=== PATIENT | male | born 1960 | race Caucasian/White ===

== ENCOUNTER 2024-12-28 09:59 | Emergency (ER) | payer MEDICARE, OTHER, SELFPAY ==
[2024-12-28 10:05] VITALS: BP 148/73
[2024-12-28 10:21] VITALS: BMI 26.1
--- NOTE | 2024-12-28 10:27 | ED.GENMED ---
Addendum entered and electronically signed by Jeet Kenyon DO 12/28/24 13:29:
Update patient remained hemodynamically stable here feeling better no recurrence of his symptoms no chest pain or shortness of breath undetectable troponin CT noted
Original Note:
History of Present Illness
General
Chief Complaint: Dizziness
Source: patient and ambulance crew
Exam Limitations: none
Time Seen by Provider: 12/28/24 10:02
Nursing documentation reviewed up to this point in time: agreed with
History of Present Illness
History of Present Illness:
64-year-old male referred from local urgent care for dizziness and abnormal EKG onset a few nights ago symptoms are intermittent, no vomiting no chest pain, took 4 baby aspirin from EMS, has history of a heart murmur since he was in the [place], does
not see a manufacturing quality technician regularly no history of CAD, symptoms have been intermittent, feels like the room spins, has no symptoms now
Past History
Past History
ED Past Medical History: HTN and Other (Heart murmur)
ED Past Surgical History: Negative Appendectomy, Bowel resection or Cardiac
Social History
Tobacco: Non-smoker
Alcohol: None
Drug: None
Personal:
Living: with family
Employment: Employed
Family History
Family History: Other (Orphan does not know his family history)
Review of Systems
Review of Systems
Other source history: family and ambulance crew
All Other Systems: Not applicable
EENT: Reports no symptoms
Respiratory: Reports no symptoms; Denies cough or trouble breathing
Cardiac: Denies chest pain, diaphoresis, palpitations or syncope
ABD/GI: Reports no symptoms; Denies abdominal pain or vomiting
Musculoskeletal: Reports no symptoms
Skin: Reports no symptoms
Neurological: Reports dizzy; Denies headache or weakness
Phy Exam
Physical Exam
Physical Exam:
Physical Exam
General: no apparent distress, not acutely ill
Neck: No jaundice
Heart: s1/s2 regular rate and rhythm, no murmur. equal radial pulses.
Lungs: no acute respiratory distress. clear bilaterally
Abdomen: Not tender
Neuro: alert and oriented. no focal neurological deficits normal [id number]
Skin: no rash
Psychiatric: well kept. interactive and cooperative
Extremities: no edema. No calf pain
Course
Orders/Labs/Results
Orders:
Orders
12/28/24 10:02
IV Insert/Care/Rem.- Treatment PRN
12/28/24 10:03
Electrocardiogram (*1) Stat
Reason for Study: Other
Other Reason for Exam: chest pain
Cardiac Monitoring- Treatment ONCE
EKG- Treatment ONCE
CR Chest Portable - 1 View Urgent
Comment:
Reason For Exam: dizzy
Reason Study Needs to be Portable: Patient Unstable
12/28/24 10:13
Complete Blood Count/With Diff Urgent
Comprehensive Metabolic Panel Urgent
Magnesium Urgent
TSH Urgent
Troponin I Urgent
12/28/24 10:59
CT Head W/o Iv Contrast Urgent
Comment:
Reason For Exam: dizyz
Orthostatic VS- Treatment ONCE
Abnormal Lab Results
12/28/24
10:13
Glucose 136 H mg/dl
(70-99)
Albumin 5.2 H g/dl
(3.5-5.0)
12/28/24 10:13
Vital Signs
Initial and Last Documented VS:
Initial Vital Signs
Temp Pulse Resp BP Pulse Ox
97.6 F 88 16 148/73 98
12/28/24 10:05 12/28/24 10:05 12/28/24 10:05 12/28/24 10:05 12/28/24 10:05
Last Documented Vital Signs
Temp Pulse Resp BP Pulse Ox
97.6 F 93 16 148/73 99
12/28/24 10:05 12/28/24 10:15 12/28/24 10:15 12/28/24 10:05 12/28/24 10:15
MDM/Problems Addressed
Differential Diagnosis Includes:
Vertigo electrolyte abnormality orthostasis doubt ACS without chest pain or shortness of breath
MDM/Problems Addressed:
Dizziness
Chronic conditions affecting care: HTN
Acute Exacerbation and/or Progression of Chronic Illness: HTN
*Radiology
Radiology exam reviewed: radiology read reviewed
*Pulse Oximetry
Patient hypoxic: no
*EKG
Interpreted by ED Provider?: Yes
Interpretation: abnormal
Comparison EKG: no comparison EKG present
Heart Rate: 78
Rate: normal
Rhythm: sinus
Ischemia: non-specific ST changes
*Zipper Setter Chainstitch Interpretation
Heart Rate: 78
Rhythm: sinus
*Critical Care Note
Total Time (30-74mins, 75-104mins- exclusive of procedures): Not Applicable
ED Attending Note
-
Portions of this chart may have been created with voice recognition software.� Occasional wrong word or��sound alike� substitutions may have occurred due to the inherent limitations of voice recognition software.
Discharge Plan
Departure
Referrals:
Tamiko Najera MD [Family Provider] -
Interventions
Interventions:
*Risk Screen - Suicide Last Done: 12/28/24 10:05
*Neglect/Abuse Screening Last Done: 12/28/24 10:05
ED- Neurological Assessment Last Done: 12/28/24 10:21
ED Swallowing Screen Last Done: 12/28/24 10:22
Discharge Date and Time
Print Language: AZERI
[2024-12-28 10:35] LABS: ALT (SGPT) 19 U/L (0-50); AST (SGOT) 22 U/L (17-59); Albumin 5.2 g/dl (3.5-5.0); Alkaline Phosphatase 82 U/L (38-126); Blood Urea Nitrogen 20 mg/dl (9-20); Calcium 9.9 mg/dl (8.4-10.2); Carbon Dioxide 22 mmol/L (22-30); Chloride 101 mmol/L (98-107); Estimated Creatinine Clearance 114 ml/min; Glucose 136 mg/dl (70-99); Magnesium 1.9 mg/dl (1.6-2.3); Potassium 3.8 mmol/L (3.5-5.1); Sodium 137 mmol/L (135-145); Total Bilirubin 0.8 mg/dl (0.2-1.3); Total Protein 8.2 g/dl (6.3-8.2); eGFR > 60.00
[2024-12-28 10:44] LABS: Troponin I < 0.012 ng/ml
[2024-12-28 11:00] VITALS: BP 145/64
[2024-12-28 11:05] LABS: TSH 1.63 uIU/ml (0.47-4.68)
[2024-12-28 11:06] VITALS: BP 131/60
[2024-12-28 11:08] VITALS: BP 146/96
[2024-12-28 11:09] VITALS: BP 160/77
[2024-12-28 11:11] VITALS: BP 131/60; BP 146/96; BP 160/77; PULSE 64; PULSE 76; PULSE 81
--- NOTE | 2024-12-28 13:26 | ED.GENMED ---
History of Present Illness
General
Chief Complaint: Dizziness
Time Seen by Provider: 12/28/24 10:02
Past History
Past History
ED Past Medical History: HTN and Other (Heart murmur)
ED Past Surgical History: Negative Appendectomy, Bowel resection or Cardiac
Social History
Tobacco: Non-smoker
Alcohol: None
Drug: None
Personal:
Living: with family
Employment: Employed
Family History
Family History: Other (Orphan does not know his family history)
Course
Orders/Labs/Results
Orders:
Orders
12/28/24 10:02
IV Insert/Care/Rem.- Treatment PRN
12/28/24 10:03
Electrocardiogram (*1) Stat
Reason for Study: Other
Other Reason for Exam: chest pain
Cardiac Monitoring- Treatment ONCE
EKG- Treatment ONCE
CR Chest Portable - 1 View Urgent
Comment:
Reason For Exam: dizzy
Reason Study Needs to be Portable: Patient Unstable
12/28/24 10:13
Complete Blood Count/With Diff Urgent
Comprehensive Metabolic Panel Urgent
Magnesium Urgent
TSH Urgent
Troponin I Urgent
12/28/24 10:59
CT Head W/o Iv Contrast Urgent
Comment:
Reason For Exam: dizyz
Orthostatic VS- Treatment ONCE
Abnormal Lab Results
12/28/24
10:13
Glucose 136 H mg/dl
(70-99)
Albumin 5.2 H g/dl
(3.5-5.0)
12/28/24 10:13
Vital Signs
Initial and Last Documented VS:
Initial Vital Signs
Temp Pulse Resp BP Pulse Ox
97.6 F 88 16 148/73 98
12/28/24 10:05 12/28/24 10:05 12/28/24 10:05 12/28/24 10:05 12/28/24 10:05
Last Documented Vital Signs
Temp Pulse Resp BP Pulse Ox
97.6 F 50 10 160/77 99
12/28/24 10:05 12/28/24 12:56 12/28/24 12:56 12/28/24 11:09 12/28/24 12:56
Update Note
Update Note:
Update CT noted patient appears well CBC appears to be hemolyzed will not repeat
ED Attending Note
-
Portions of this chart may have been created with voice recognition software.� Occasional wrong word or��sound alike� substitutions may have occurred due to the inherent limitations of voice recognition software.
Discharge Plan
Departure
Patient Disposition: Home (Routine Discharge)
Date of Disposition: 12/28/24
Time of Disposition: 13:27
Patient with high blood pressure during this ER visit?: No
Condition: Good
Discharge Problem:
Dizziness
Instructions: Dizziness
Prescriptions:
New
meclizine [Antivert] 25 mg tablet,chewable
25 mg PO Q8HPRN PRN (Reason: nausea or vertigo) Qty: 14 0RF
Referrals:
Tamiko Najera MD [Family Provider] -
Activity Restrictions/Additional Instructions:
Drink plenty of fluids meclizine as needed for dizziness or nausea follow-up with your primary care provider return to the ER if worsening symptoms
Interventions
Interventions:
*Risk Screen - Suicide Last Done: 12/28/24 10:05
*Neglect/Abuse Screening Last Done: 12/28/24 10:05
ED- Neurological Assessment Last Done: 12/28/24 10:21
ED Swallowing Screen Last Done: 12/28/24 10:22
Discharge Date and Time
Print Language: MALAWIAN
[2024-12-28 14:01] LABS: % Basophils 0.6 % (0-2); % Eosinophils 0.2 % (0-6); % Immature Granulocytes 0.2 % (0-0.5); % Lymphocytes 14.8 % (20.5-51.1); % Monocytes 4.5 % (1.7-9.3); % Neutrophils 79.7 % (42.2-75.2); Absolute Basophils 0.1 10^3/uL (0-0.2); Absolute Lymphocytes 1.9 10^3/uL (1.2-3.4); Absolute Monocytes 0.6 10^3/uL (0.1-0.6); Absolute Neutrophils 10.2 10^3/uL (1.4-6.5); Hematocrit 42.8 % (39.0-52.0); Mean Corpuscular Hgb 29.4 pg (27.0-31.0); Mean Corpuscular Volume 83.9 fL (80.0-94.0); Mean Platelet Volume 11.5 fL (7.4-10.4); Nucleated Red Blood Cells % 0 % (-); Platelet Count 269 10^3/uL (130-400); Red Cell Dist. Width 13.1 % (11.5-14.5); White Blood Cell Count 12.8 10^3/uL (4.8-10.8)
== END 2024-12-28 13:49 | disposition home or self-care (01) ==
LOC: EMR 09:59
PROVIDERS: EMERGENCY PHYSICIAN Emergency Medicine; FAMILY PHYSICIAN Family Medicine
DX: R42 Dizziness and giddiness (principal); R94.31 Abnormal electrocardiogram [ECG] [EKG]; R01.1 Cardiac murmur, unspecified; I10 Essential (primary) hypertension
CPT/HCPCS: 99285; 70450; 71045; 80053; 83735; 84443; 84484; 85025; 93005